=== PATIENT | male | born 1990 | race Two or more races ===

== ENCOUNTER 2020-04-08 17:41 | Emergency (ER) | payer SELFPAY ==
[~2020-04-08] VITALS: Ht 165.1 cm; Wt 63.5 kg
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
[2020-04-08 17:53] VITALS: BP 105/72
[2020-04-08] MEDS ORDERED: Acetaminophen 500mg (ES) tab ORAL ONE (18:00)
--- NOTE | 2020-04-08 18:00 | NUR ---
ED Nurse Note: Pt no longer in custody released on 0 bail
--- NOTE | 2020-04-08 18:15 | NUR ---
ED Nurse Note: xrays taken
--- NOTE | 2020-04-08 18:50 | Diagnostic Imaging Report ---
EXAM: CT Maxillofacial Without Intravenous Contrast CLINICAL HISTORY: PAIN TECHNIQUE: Axial computed tomography images of the face without intravenous contrast. CTDI is 15 mGy and DLP is 394 mGy-cm. One or more of the following dose reduction techniques were used: automated exposure control, adjustment of the mA and/or kV according to patient size, use of iterative reconstruction technique. COMPARISON: No relevant prior studies available. FINDINGS: Bones/joints: No facial fracture. Soft tissues: Unremarkable. Sinuses: Unremarkable as visualized. Mastoid air cells: Unremarkable as visualized. No mastoid effusion. Orbits: Unremarkable as visualized. IMPRESSION: No facial fracture.
--- NOTE | 2020-04-08 18:52 | Diagnostic Imaging Report ---
EXAM: XR Left Hand Complete, 3 or More Views CLINICAL HISTORY: PAIN TECHNIQUE: Frontal, lateral and oblique views of the left hand. COMPARISON: No relevant prior studies available. FINDINGS: Bones/joints: No fracture or malalignment. Soft tissues: Unremarkable. No radiopaque foreign body. IMPRESSION: No fracture or malalignment.
[2020-04-08] MEDS ORDERED: ACETAMINOPHEN500 M3 ORAL (18:55)
== END 2020-04-08 19:00 | disposition home or self-care (01) ==
LOC: EMR 18:34
DX: S60.222A Contusion of left hand, initial encounter (principal); S00.83XA Contusion of other part of head, initial encounter; Y09 Assault by unspecified means; Y92.9 Unspecified place or not applicable
CPT/HCPCS: 70486; 99284